=== PATIENT | male | born 1955 | race Caucasian/White ===

== ENCOUNTER → 2016-07-24 | Outpatient (CLI) | payer BC, OTHER ==
[~2016-07-24] MED LIST: ADALAT CC60 MG PO; ASPIRIN E.C. 8181 MG PO; ATENOLOL100 MG PO; ATIVAN1 MG PO; BACTRIM DS 8001 TAB PO; COLACE 100100 MG/CAP PO; FLEXERIL10 MG PO; FLOMAX 0.40.4 MG/CAP PO; HALCION0.25 MG PO; HCTZ 25MG25 MG PO; LEVSIN0.125 M1 PO; NORCO 325 MG-51 TAB PO; ONE DAILY1 TA1 PO; PYRIDIUM200 M1 PO; TRIAZOLAM0.25 MG PO; TYLENOL 325MG325 MG PO; ULTRAM 50MG TAB50 MG PO; ZOFRAN 4MG T4 MG/TAB PO
== END ==
LOC: COL.RAD 11:10
DX: Z13.89 Encounter for screening for other disorder (principal)
CPT/HCPCS: Q9967

== ENCOUNTER → 2016-08-05 | Outpatient (CLI) | payer BC, OTHER | LOC: COL.RAD 10:36 | DX: M25.551 Pain in right hip (principal) | CPT/HCPCS: J3301; Q9967 ==

== ENCOUNTER 2016-11-07 15:15 | Day surgery (SDC) | payer BC, OTHER ==
[~2016-11-07] VITALS: Ht 185.4 cm; Wt 122.3 kg
[2016-11-07] VITALS (8 sets, daily range): BP systolic 127–161; BP diastolic 78–98; PULSE 81–93; TEMP 98.2–98.5
[~2016-11-07 15:15] MED LIST changes: -LEVSIN0.125 M1 PO; -ULTRAM 50MG TAB50 MG PO; -ZOFRAN 4MG T4 MG/TAB PO
[2016-11-08 00:15] VITALS: BP 151/101; PULSE 88
[2016-11-08 00:30] VITALS: BP 141/94; PULSE 93; TEMP 98
[2016-11-08 01:13] VITALS: BP 136/91; PULSE 97; TEMP 98.2
[2016-11-08 02:38] VITALS: BP 136/91; PULSE 97; TEMP 98.2
[2016-11-08 05:20] VITALS: BP 145/91; PULSE 99; TEMP 97.9
[2016-11-08 09:39] VITALS: BP 163/91; PULSE 96; TEMP 98.1
== END 2016-11-08 14:20 | disposition home or self-care (01) ==
LOC: SDCO 15:15 → SURG 20:43 → SDCO 11-08 14:20
DX: C67.9 Malignant neoplasm of bladder, unspecified (principal); I10 Essential (primary) hypertension; F17.210 Nicotine dependence, cigarettes, uncomplicated; M19.90 Unspecified osteoarthritis, unspecified site; Z80.8 Family history of malignant neoplasm of other organs or systems; Z90.79 Acquired absence of other genital organ(s)
CPT/HCPCS: OP; C1769; C2617; J0360; J0690; J1100; J1170; J1800; J1940; J2270; J2405; J2704; J3010; J7120; J9280; Q9967

== ENCOUNTER 2016-11-14 10:02 | Day surgery (SDC) | payer BC, OTHER ==
[~2016-11-14] VITALS: Ht 185.4 cm; Wt 120.7 kg
[2016-11-14 10:37] VITALS: BP 144/90; PULSE 96; TEMP 98.3
[2016-11-14 13:55] VITALS: BP 126/91; PULSE 71; TEMP 97.4
[2016-11-14 14:10] VITALS: BP 131/89; PULSE 72
[2016-11-14 14:25] VITALS: BP 143/96; PULSE 68
[2016-11-14 15:07] VITALS: BP 129/91; PULSE 70
== END 2016-11-14 14:55 | disposition home or self-care (01) ==
LOC: SDCO 10:02
DX: C66.1 Malignant neoplasm of right ureter (principal); I10 Essential (primary) hypertension; C79.9 Secondary malignant neoplasm of unspecified site; G47.00 Insomnia, unspecified; F17.210 Nicotine dependence, cigarettes, uncomplicated; M19.90 Unspecified osteoarthritis, unspecified site; R31.0 Gross hematuria; Z80.0 Family history of malignant neoplasm of digestive organs; Z85.51 Personal history of malignant neoplasm of bladder
CPT/HCPCS: C1769; C2617; J0690; J1170; J2270; J2405; J2704; J2765; J3010; J7120

== ENCOUNTER 2016-12-02 09:48 | Inpatient (IN) | payer BC, OTHER ==
[~2016-12-02] VITALS: Ht 185.4 cm; Wt 119.8 kg
[2016-12-10] VITALS (12 sets, daily range): BP systolic 105–147; BP diastolic 59–99; PULSE 86–99; TEMP 98–100.5
[2016-12-10 16:13] LABS: CALCIUM 8.2 mg/dL (8.4-10.2); CREATININE, serum 1.02 mg/dL (0.66-1.25); POTASSIUM 3.7 mmol/L (3.4-5.0)
[2016-12-10 16:15] LABS: BASO % 0.2 % (0.0-2.0); EOS % 0.2 % (0-4.0); GRAN # 12.7 (1.4-6.5); LYMPH % 6.7 % (20.0-51.0); MEAN CELL VOLUME 92 fl (80.0-100.0); MEAN CORPUSCULAR HGB CONC 33 g/dl (33.0-37.0); MEAN PLATELET VOLUME 11.7 fl (7.4-10.4); MONO # 0.8 (0.1-0.6); MONO % 5.3 % (1.7-9.3); PLATELET COUNT 137 K/mm3 (130-400); RED BLOOD COUNT 3.86 M/mm3 (4.20-5.60); REDCELL DISTRIBUTION WIDTH-CV 12.7 % (11.5-14.5); WHITE BLOOD COUNT 14.5 K/mm3 (4.8-10.8)
[2016-12-10 16:19] LABS: HEMATOCRIT 35.3 % (42.0-52.0); HEMOGLOBIN 11.7 g/dl (13.5-18.0); MEAN CORPUSCULAR HEMOGLOBIN 30 pg (27.0-31.0)
[2016-12-11] VITALS (7 sets, daily range): BP systolic 110–144; BP diastolic 60–94; PULSE 58–110; TEMP 98.1–100.3
[2016-12-11 06:55] LABS: BASO # 0.1 (0.0-0.2); BASO % 0.6 % (0.0-2.0); EOS # 0.6 (0.0-0.7); EOS % 4.6 % (0-4.0); GRAN # 7.8 (1.4-6.5); GRAN % 61.8 % (42.2-75.2); HEMATOCRIT 30.6 % (42.0-52.0); HEMOGLOBIN 10.1 g/dl (13.5-18.0); LYMPH # 2.7 (1.2-3.4); LYMPH % 21.2 % (20.0-51.0); MEAN CELL VOLUME 92 fl (80.0-100.0); MEAN CORPUSCULAR HEMOGLOBIN 31 pg (27.0-31.0); MEAN CORPUSCULAR HGB CONC 33 g/dl (33.0-37.0); MEAN PLATELET VOLUME 10.5 fl (7.4-10.4); MONO # 1.4 (0.1-0.6); MONO % 11.2 % (1.7-9.3); PLATELET COUNT 255 K/mm3 (130-400); RED BLOOD COUNT 3.31 M/mm3 (4.20-5.60); WHITE BLOOD COUNT 12.6 K/mm3 (4.8-10.8)
[2016-12-11 07:04] LABS: CALCIUM 8.3 mg/dL (8.4-10.2); CREATININE, serum 1.38 mg/dL (0.66-1.25)
[2016-12-12] VITALS (9 sets, daily range): BP systolic 139–165; BP diastolic 79–105; PULSE 90–118; TEMP 37.9
[2016-12-12 11:04] LABS: MEAN CELL VOLUME 91 fl (80.0-100.0); MEAN CORPUSCULAR HGB CONC 34 g/dl (33.0-37.0); MEAN PLATELET VOLUME 10.9 fl (7.4-10.4); PLATELET COUNT 281 K/mm3 (130-400); RED BLOOD COUNT 3.79 M/mm3 (4.20-5.60); REDCELL DISTRIBUTION WIDTH-CV 12.5 % (11.5-14.5); WHITE BLOOD COUNT 16.8 K/mm3 (4.8-10.8)
[2016-12-12 11:06] LABS: CALCIUM 9.1 mg/dL (8.4-10.2); CREATININE, serum 1.16 mg/dL (0.66-1.25); POTASSIUM 4.1 mmol/L (3.4-5.0)
[2016-12-12 11:08] LABS: HEMATOCRIT 34.4 % (42.0-52.0); HEMOGLOBIN 11.6 g/dl (13.5-18.0); MEAN CORPUSCULAR HEMOGLOBIN 31 pg (27.0-31.0)
[2016-12-13 02:15] VITALS: BP 160/84; PULSE 109; TEMP 100.1
[2016-12-13 06:21] VITALS: BP 157/94; PULSE 92; TEMP 100.1
[2016-12-13 08:39] LABS: BASO % 0.2 % (0.0-2.0); EOS # 0.8 (0.0-0.7); EOS % 4.7 % (0-4.0); GRAN # 11.7 (1.4-6.5); LYMPH # 2.8 (1.2-3.4); LYMPH % 16.6 % (20.0-51.0); MEAN CELL VOLUME 92 fl (80.0-100.0); MEAN CORPUSCULAR HEMOGLOBIN 31 pg (27.0-31.0); MEAN CORPUSCULAR HGB CONC 34 g/dl (33.0-37.0); MEAN PLATELET VOLUME 11.3 fl (7.4-10.4); MONO # 1.5 (0.1-0.6); MONO % 8.7 % (1.7-9.3); PLATELET COUNT 328 K/mm3 (130-400); RED BLOOD COUNT 3.89 M/mm3 (4.20-5.60); REDCELL DISTRIBUTION WIDTH-CV 12.7 % (11.5-14.5)
[2016-12-13 08:40] LABS: HEMATOCRIT 35.6 % (42.0-52.0)
[2016-12-13 08:48] LABS: CALCIUM 9.2 mg/dL (8.4-10.2); CREATININE, serum 1.17 mg/dL (0.66-1.25); POTASSIUM 3.7 mmol/L (3.4-5.0)
[2016-12-13 10:09] VITALS: BP 151/95; PULSE 82; TEMP 98.2
[2016-12-13 14:22] VITALS: BP 149/99; PULSE 85; TEMP 99.9
[2016-12-13 15:05] LABS: PH 9 (5-8); SQUAMOUS EPITHELIAL None Seen /hpf; URINE APPEARANCE Cloudy; URINE BACTERIA Rare /hpf; URINE BILIRUBIN Negative (NEGATIVE); URINE BLOOD 2+ (NEGATIVE); URINE COLOR Yellow; URINE GLUCOSE Negative (NEGATIVE); URINE KETONE Negative (NEGATIVE); URINE RBC >50 /hpf; URINE UROBILINOGEN Negative (NEGATIVE)
[2016-12-13 17:47] VITALS: BP 156/94; PULSE 93; TEMP 100.1
[2016-12-14] VITALS (8 sets, daily range): BP systolic 121–154; BP diastolic 63–97; PULSE 80–105; TEMP 98.2–99.9
[2016-12-14 07:23] LABS: BASO # 0.1 (0.0-0.2); BASO % 0.5 % (0.0-2.0); EOS % 14.2 % (0-4.0); GRAN # 6.8 (1.4-6.5); GRAN % 49.1 % (42.2-75.2); LYMPH # 3.7 (1.2-3.4); MEAN CELL VOLUME 93 fl (80.0-100.0); MEAN CORPUSCULAR HGB CONC 33 g/dl (33.0-37.0); MEAN PLATELET VOLUME 11.3 fl (7.4-10.4); MONO # 1.1 (0.1-0.6); MONO % 8.2 % (1.7-9.3); PLATELET COUNT 306 K/mm3 (130-400); RED BLOOD COUNT 3.54 M/mm3 (4.20-5.60); REDCELL DISTRIBUTION WIDTH-CV 12.8 % (11.5-14.5); WHITE BLOOD COUNT 13.8 K/mm3 (4.8-10.8)
[2016-12-14 07:30] LABS: HEMATOCRIT 32.8 % (42.0-52.0); HEMOGLOBIN 10.8 g/dl (13.5-18.0); MEAN CORPUSCULAR HEMOGLOBIN 31 pg (27.0-31.0)
[2016-12-15] VITALS (7 sets, daily range): BP systolic 118–169; BP diastolic 57–107; PULSE 79–101; TEMP 97.6–99.7
[2016-12-16 05:59] VITALS: BP 128/84; PULSE 103; TEMP 98.2
[2016-12-16 09:52] VITALS: BP 140/96; PULSE 88; TEMP 98.9
[2016-12-16 09:52] LABS: BASO # 0.1 (0.0-0.2); BASO % 0.5 % (0.0-2.0); EOS # 2.3 (0.0-0.7); EOS % 15.3 % (0-4.0); GRAN % 60.6 % (42.2-75.2); LYMPH # 2.3 (1.2-3.4); LYMPH % 15.5 % (20.0-51.0); MEAN CELL VOLUME 91 fl (80.0-100.0); MEAN CORPUSCULAR HGB CONC 34 g/dl (33.0-37.0); MONO # 1.1 (0.1-0.6); MONO % 7.2 % (1.7-9.3); PLATELET COUNT 321 K/mm3 (130-400); RED BLOOD COUNT 3.67 M/mm3 (4.20-5.60); REDCELL DISTRIBUTION WIDTH-CV 13.1 % (11.5-14.5); WHITE BLOOD COUNT 14.8 K/mm3 (4.8-10.8)
[2016-12-16 09:53] LABS: HEMATOCRIT 33.5 % (42.0-52.0); HEMOGLOBIN 11.3 g/dl (13.5-18.0); MEAN CORPUSCULAR HEMOGLOBIN 31 pg (27.0-31.0)
[2016-12-16 13:05] VITALS: BP 128/81; PULSE 95; TEMP 99
[2016-12-16] MEDS ORDERED: ULTRAM 50MG TAB50 MG PO (13:55)
[2016-12-16] MEDS ORDERED: LEVSIN0.125 M1 PO (13:56)
[2016-12-16] MEDS ORDERED: ZOFRAN 4MG T4 MG/TAB PO (13:56)
[2016-12-16] MEDS ORDERED: COLACE 100100 MG/CAP PO (13:57)
[2016-12-16] MEDS ORDERED: PYRIDIUM200 M1 PO (13:58)
== END 2016-12-16 16:30 | disposition home or self-care (01) | DRG 657 ==
LOC: INPTSU 12-10 08:21 → SURG 12-10 08:21
PROVIDERS: Nurse Practitioner Family; Physician Assistant; Urology
PROC: 0TT60ZZ Resection of Right Ureter, Open Approach (ICD-10-PCS; 2016-12-10)
PROC: 0TT00ZZ Resection of Right Kidney, Open Approach (ICD-10-PCS; principal; 2016-12-10 11:00)
DX: C66.1 Malignant neoplasm of right ureter (principal); K91.3 Postprocedural intestinal obstruction; J98.11 Atelectasis; I10 Essential (primary) hypertension; C67.8 Malignant neoplasm of overlapping sites of bladder; Z87.891 Personal history of nicotine dependence
CPT/HCPCS: 99223; 99232-AI; 99233-AI; A4315; A9284; J0690; J0696; J1100; J1170; J1650; J2250; J2370; J2405; J2704; J2795; J3010; J3480; J7050; J7120

== ENCOUNTER → 2016-12-18 | Outpatient (CLI) | payer BC, OTHER ==
[~2016-12-18] MED LIST changes: +LEVSIN0.125 M1 PO; +ULTRAM 50MG TAB50 MG PO; +ZOFRAN 4MG T4 MG/TAB PO
== END ==
LOC: COL.RAD 11:30
DX: C67.8 Malignant neoplasm of overlapping sites of bladder (principal); C67.2 Malignant neoplasm of lateral wall of bladder; Z85.53 Personal history of malignant neoplasm of renal pelvis; Z90.5 Acquired absence of kidney; Z90.6 Acquired absence of other parts of urinary tract; Z98.890 Other specified postprocedural states
CPT/HCPCS: Q9967

== ENCOUNTER → 2018-09-28 | Outpatient (CLI) | payer BC, OTHER | LOC: COL.RAD 07:19 | DX: N44.2 Benign cyst of testis (principal); I86.1 Scrotal varices; N43.3 Hydrocele, unspecified ==

== ENCOUNTER → 2019-01-15 | Outpatient (CLI) | payer BC, OTHER | LOC: COL.RAD 07:55 | DX: M25.551 Pain in right hip (principal) | CPT/HCPCS: J3301; Q9967 ==

== ENCOUNTER 2020-08-04 13:07 | Day surgery (SDC) | payer MEDICARE, BC, OTHER ==
[~2020-08-04] VITALS: Ht 185.4 cm; Wt 125.0 kg
[2020-08-04 13:30] VITALS: BP 116/80; PULSE 60; TEMP 98.7
[2020-08-04] MEDS ORDERED: DESYREL 100MG100 MG PO (13:31)
[2020-08-04] MEDS ORDERED: SENNA-LAX8.6 MG PO (13:32)
[2020-08-04] MEDS ORDERED: TYLENOL 325MG325 MG PO (13:32)
[2020-08-04] MEDS ORDERED: BYSTOLIC5 MG PO (13:33)
[2020-08-04] MEDS ORDERED: MOBIC 7.5MG7.5 MG PO (13:34)
[2020-08-04 15:30] VITALS: BP 96/66; PULSE 59; TEMP 97.5
--- NOTE | 2020-08-04 15:30 | NUR ---
PT RETURNS TO [facility] VIA CART ACCOMPANIED BY MAEGAN YU. PT AMBULATES TO CHAIR WITH STANDBY ASSISTANCE. GAIT STEADY. PT'S HEART RATE LOW WITH SPO2 MONITOR. PT PLACED BACK ON NEEDLEWORKER, RATE 59 WITH TRIGEMINY PVC'S. PER Lucia GRAY RN, THIS IS WHAT PT RAN THROUGHOUT PROCEDURE WELL. REST OF VITALS WNL. PT C/O LOWER BACK PAIN, REPORTS THIS IS NORMAL FOR PT, JUST FROM LYING FOR LONG PERIOD ON CART. PT DENIES ABDOMINAL PAIN OR NAUSEA. ABDOMEN SOFT. SPRITE PROVIDED. PT DENIES ANY CARDIAC SYMPTOMS, NO SHORTNESSS OF BREATH OR CHEST DISCOMFORT. PT RESTING IN CHAIR, AT BEDSIDE. CALL LIGHT IN REACH.
[2020-08-04 15:45] VITALS: BP 102/80; PULSE 86
--- NOTE | 2020-08-04 15:45 | NUR ---
PT RESTING IN CHAIR. HEART RATE 86. HEART AUSCULTATED, REGULAR DURING AUSCULTATION, MURMUR NOTED. FREQUENT PVC'S NOTED. PT GOES FROM SINUS RHYTHM TO SINUS RHYTHM WITH TRIGEMINY PVC'S OCCASSIONALLY. PT DENIES CHEST PAIN OR SHORTNESS OF BREATH. PT DENIES FEELING PVC'S. PT DENIES ABDOMINAL PAIN OR NAUSEA. CONTINUES WITH REGULAR BACK PAIN PER PT'S NORMAL AFTER SITTING FOR LONG PERIODS. BLUEBERRY MUFFIN PROVIDED. SPOUSE REMAINS AT BEDSIDE, CALL LIGHT IN REACH.
[2020-08-04 16:00] VITALS: BP 114/83; PULSE 63
--- NOTE | 2020-08-04 16:00 | NUR ---
DR. EJNKINS NOTIFIED OF PT'S PVC'S, NO NEW ORDERS RECEIVED. DR. JENKINS STATES THAT THIS IS NORMAL FOR PT, SIMILAR TO PT'S HEART RHYTHM DURING PROCEDURE. PT SEE CARDIOLOGY FOR THIS. PT RESTING IN CHAIR. DR. JENKINS IN TO DISCUSS PROCEDURE WITH PT. AT SIDE. CALL LIGHT IN REACH.
[2020-08-04 16:15] VITALS: BP 120/81; PULSE 61
--- NOTE | 2020-08-04 16:15 | NUR ---
PT RESTING IN CHAIR, READY TO LEAVE. PT STATES HE FEELS GREAT. ATE BLUEBERRY MUFFIN WITH NO PROBLEMS. PT DENIES ABDOMINAL PAIN OR NAUSEA. PT'S HEART RATE/RHYTHM CONSISTENT WITH SINUS RHYTHM AND OCCASSIONAL TRIGEMINY/BIGEMINY PVC'S. PT DENIES CHEST DISCOMFORT OR SHORTNESS OF BREATH. PT'S HEART RATE/RHYTM NORMAL FOR PT. PT'S IV DISCONTINUED. PT CHANGED INTO PERSONAL CLOTHES. PT DENIES FURTHER NEEDS OR COMPLAINTS.
--- NOTE | 2020-08-04 16:35 | NUR ---
DISCHARGE INSTRUCTIONS PROVIDED. PT AND VERBALIZE UNDERSTANDING AND DENY FURTHER QUESTIONS OR COMPLAINTS.
--- NOTE | 2020-08-04 16:45 | NUR ---
PT DISCHARGED VIA WHEEL CHAIR TO PRIVATE VEHICLE DRIVEN BY . PT'S DISCHARGE PACKET AND BELONGINGS SENT WITH PT.
== END 2020-08-04 16:45 | disposition home or self-care (01) ==
LOC: SDCO 13:07
DX: Z12.11 Encounter for screening for malignant neoplasm of colon (principal); D12.2 Benign neoplasm of ascending colon; D12.3 Benign neoplasm of transverse colon; D12.5 Benign neoplasm of sigmoid colon; D12.8 Benign neoplasm of rectum; I10 Essential (primary) hypertension; M19.90 Unspecified osteoarthritis, unspecified site; K57.30 Diverticulosis of large intestine without perforation or abscess without bleeding; Z20.822 Contact with and (suspected) exposure to COVID-19; Z86.010 Personal history of colon polyps; Z79.899 Other long term (current) drug therapy; Z87.891 Personal history of nicotine dependence; Z85.51 Personal history of malignant neoplasm of bladder; Z90.89 Acquired absence of other organs; Z88.8 Allergy status to other drugs, medicaments and biological substances
CPT/HCPCS: J2704; J7030

== ENCOUNTER 2021-02-02 07:35 | Day surgery (SDC) | payer MEDICARE, BC, OTHER ==
[~2021-02-02] VITALS: Ht 185.4 cm; Wt 128.2 kg
[~2021-02-02 07:35] MED LIST changes: +BYSTOLIC5 MG PO; +DESYREL 100MG100 MG PO; +MOBIC 7.5MG7.5 MG PO; +SENNA-LAX8.6 MG PO
[2021-02-02] MEDS ORDERED: DAILY MULTIPLE1 T18 PO (07:55)
[2021-02-02] MEDS ORDERED: NEURONTIN300 MG/CAP PO (07:55)
[2021-02-02] MEDS ORDERED: TYLENOL 500MG500 MG PO (07:56)
[2021-02-02] MEDS ORDERED: PREDFORTE5ML OP (07:57)
[2021-02-02 08:14] VITALS: BP 143/95; PULSE 76; TEMP 97.6
[2021-02-02 09:20] VITALS: BP 112/73; PULSE 64; TEMP 97.8
[2021-02-02 09:30] VITALS: BP 125/79; PULSE 60
[2021-02-02 09:45] VITALS: BP 135/84; PULSE 61
[2021-02-02 09:50] VITALS: BP 135/84; PULSE 61
--- NOTE | 2021-02-02 10:03 | NUR ---
0920 Pt returns from endo procedure via cart and RN assist to [facility]. Pt ambulates from cart to recliner with RN assist. Monitors on and alarms set. Call light within reach. Report received from [facility]IG[facility] Lowery. Pt alert and oriented. Pt requests jello and Sprite. Pt denies any pain or nausea. 0930 Pt taking food and drink well. No complications noted. 1000 Discharge instructions given to pt and . All questions answered to their satisfaction. Handed to pt are a thank you card and discharge information. 1003 Pt transferred out of the hospital via wheelchair and this RN assist, to private vehicle driven by pt's .
[2021-02-02 10:54] VITALS: BP 118/73; PULSE 63
== END 2021-02-02 10:03 | disposition home or self-care (01) ==
LOC: SDCO 07:35
DX: Z12.11 Encounter for screening for malignant neoplasm of colon (principal); D12.2 Benign neoplasm of ascending colon; K57.30 Diverticulosis of large intestine without perforation or abscess without bleeding; M19.90 Unspecified osteoarthritis, unspecified site; I10 Essential (primary) hypertension; Z86.010 Personal history of colon polyps; Z20.822 Contact with and (suspected) exposure to COVID-19; Z87.891 Personal history of nicotine dependence; Z79.899 Other long term (current) drug therapy; Z85.51 Personal history of malignant neoplasm of bladder; Z90.5 Acquired absence of kidney
CPT/HCPCS: J2704; J7120

== ENCOUNTER → 2021-03-12 | Outpatient (CLI) | payer MEDICARE, BC, OTHER ==
[~2021-03-12] MED LIST changes: +DAILY MULTIPLE1 T18 PO; +NEURONTIN300 MG/CAP PO; +PREDFORTE5ML OP; +TYLENOL 500MG500 MG PO
== END ==
LOC: COL.RAD 08:04
DX: Z13.6 Encounter for screening for cardiovascular disorders (principal)

== ENCOUNTER → 2022-01-07 | Outpatient (CLI) | payer MEDICARE, BC, OTHER | LOC: COL.RAD 09:19 | DX: M25.552 Pain in left hip (principal) | CPT/HCPCS: J3301; Q9967 ==

== ENCOUNTER → 2023-04-09 | Outpatient (CLI) | payer MEDICARE, BC, OTHER ==
[~2023-04-09] VITALS: Ht 185.4 cm; Wt 126.0 kg
[~2023-04-09] MED LIST changes: +AMBIEN 10MG10 MG PO; +CITRACAL PETITE1 TAB PO; +CITRACAL-D3 ER1 EACH PO; +PERCOCET 325 MG1 TA2 PO
[2023-04-09 07:37] VITALS: BP 154/95; PULSE 70; TEMP 97.9
[2023-04-09 08:10] VITALS: BP 148/97; PULSE 63
== END ==
LOC: COL.RAD 07:12
DX: M54.41 Lumbago with sciatica, right side (principal)
CPT/HCPCS: J0665; J3301

== ENCOUNTER → 2023-04-14 | Outpatient (CLI) | payer MEDICARE | LOC: COL.RAD 12:37 | DX: Z12.2 Encounter for screening for malignant neoplasm of respiratory organs (principal); Z87.891 Personal history of nicotine dependence ==

== ENCOUNTER → 2023-07-21 | Outpatient (CLI) | payer MEDICARE, BC ==
[~2023-07-21] MED LIST changes: +Iohexol 300 - 10 ML VIAL IV ONE; +Triamcinolone 40 MG/ML 1 ML VIAL IJ ONE
== END ==
LOC: COL.RAD 12:27
DX: M16.11 Unilateral primary osteoarthritis, right hip (principal)
CPT/HCPCS: J0665; J3301; Q9967

== ENCOUNTER → 2023-07-22 | Outpatient (CLI) | payer MEDICARE ==
[~2023-07-22] MED LIST changes: +Barium Sulfate 2% Oral Susp 450 ML X 2 BOTTLES PO SCH; -Iohexol 300 - 10 ML VIAL IV ONE; +Iohexol 300 - 100 ML VIAL IV ONE; +NS 100 ML IV SCH; -Triamcinolone 40 MG/ML 1 ML VIAL IJ ONE
== END ==
LOC: COL.RAD 11:48
DX: D35.01 Benign neoplasm of right adrenal gland (principal); E04.2 Nontoxic multinodular goiter
CPT/HCPCS: Q9967

== ENCOUNTER → 2024-03-08 | Outpatient (CLI) | payer MEDICARE, BC, OTHER ==
[~2024-03-08] MED LIST changes: -Barium Sulfate 2% Oral Susp 450 ML X 2 BOTTLES PO SCH; +Iohexol 300 - 10 ML VIAL IV ONE; -Iohexol 300 - 100 ML VIAL IV ONE; -NS 100 ML IV SCH; +Triamcinolone 40 MG/ML 1 ML VIAL IJ ONE
== END ==
LOC: COL.RAD 08:28
DX: M25.551 Pain in right hip (principal)
CPT/HCPCS: J0665; J3301; Q9967